=== PATIENT | female | born 1975 | race Caucasian/White ===

== ENCOUNTER 2024-12-04 09:04 | Emergency (ER) | payer OTHER ==
[~2024-12-04] VITALS: Ht 165.1 cm; Wt 63.6 kg
[~2024-12-04 09:04] MED LIST: MOTRIN; VICODIN
[2024-12-04 09:43] LABS: PLATELET COUNT (AUTO) 207 K/uL (150-450); RED BLOOD CELL COUNT(AUTO) 4.52 MIL/uL (4.00-5.20); RED CELL DISTRIBUTION WIDTH 14.9 % (11.5-14.5); WHITE BLOOD COUNT (AUTO) 4.3 K/uL (4.5-11.0)
[2024-12-04 09:59] LABS: ASPARTATE AMINOTRANSFERASE 14.0 U/L (15-37); CALCIUM, TOTAL 8.4 mg/dL (8.8-10.5); CREATININE 0.64 mg/dL (0.60-1.30); GLOMERULAR FILTR. RATE CALC > 60 mL/min (>60); GLUCOSE,RANDOM 158 mg/dL (70-110); HCG,QUANTITATIVE 1.0 mIU/mL (0-6); SODIUM SERUM 140 mmol/L (136-145); TOTAL PROTEIN, SERUM 6.8 g/dL (6.4-8.2); UREA NITROGEN, BLOOD 14 mg/dL (7-18)
[2024-12-04 10:00] VITALS: BP 120/69; PULSE 78; RESP 16; TEMP 97.8; O2SAT 96
[2024-12-04] MEDS: SODIUM CHLORIDE 0.9% 1,000 ML IV ONE (10:03)
[2024-12-04] MEDS: ONDANSETRON HCL 4 MG/2 ML VIAL IVP ONE (10:03)
[2024-12-04 10:11] LABS: COVID AG,FIA SOURCE NASAL SWAB
[2024-12-04 10:12] LABS: TROPONIN I-HIGH SENSITIVITY Less Than 4 ng/L (<51)
[2024-12-04 10:44] LABS: INFLUENZA TYPE A NEGATIVE FOR TYPE A (NEGATIVE); INFLUENZA TYPE B NEGATIVE FOR TYPE B (NEGATIVE); SARS-COV2 (COVID) ANTIGEN,FIA Negative (Negative)
[2024-12-04 11:14] LABS: APPEARANCE,URINE CLEAR (CLEAR); GLUCOSE, URINE (UA) NEGATIVE (NEGATIVE); LEUKOCYTE ESTERASE ,URINE NEGATIVE (NEGATIVE); NITRATE,URINE POSITIVE (NEGATIVE); OCCULT BLOOD,URINE NEGATIVE (NEGATIVE); SPECIFIC GRAVITIY, URINE 1.014 (1.003-1.030)
[2024-12-04 11:41] LABS: SQUAMOUS EPITHELIAL CELL,UR Moderate /LPF (None Seen)
[2024-12-04 12:23] LABS: ALCOHOL, URINE DRUG SCREEN NEGATIVE (NEGATIVE); AMPHET/METH SCREEN,URINE NEGATIVE (NEGATIVE); BARBITURATE SCREEN, URINE NEGATIVE (NEGATIVE); CANNABINOID SCREEN,URINE NEGATIVE (NEGATIVE); COCAINE SCREEN,URINE NEGATIVE (NEGATIVE); METHADONE SCREEN, URINE NEGATIVE (NEGATIVE)
[2024-12-04 12:31] LABS: PH,URINE DRUG SCREEN 6.0 (5.0-8.0)
[2024-12-04 14:34] LABS: TROPONIN I-HIGH SENSITIVITY 4 ng/L (<51)
[2024-12-04] MEDS: CefTRIAXone 1 GM/DEXTROSE 50 ML IV ONE (14:54)
[2024-12-04] MEDS ORDERED: CEPH-558 PO (15:10)
== END 2024-12-04 15:34 | disposition home or self-care (01) ==
LOC: EMS 09:05
DX: N39.0 Urinary tract infection, site not specified (principal); R42 Dizziness and giddiness; R11.0 Nausea; Z90.721 Acquired absence of ovaries, unilateral; Z79.899 Other long term (current) drug therapy; Z20.822 Contact with and (suspected) exposure to COVID-19
CPT/HCPCS: 99285; 96361; 96365; 70450; 71045; 87426; 80048; 80076; 83690; 84484; 84702; 85025; 87086; 87804; 36415; 93005; 80307; 81001; J0696; J7030; 87077